=== PATIENT | female | born 1975 | race Caucasian/White ===

== ENCOUNTER 2017-03-19 09:42 | Day surgery (SDC) | payer BC ==
--- NOTE | 2017-03-19 08:51 | PCM.PREANE ---
Preanesthetic Assessment - Anesthesia/Transfusion/Family Hx Anesthesia History: Prior Anesthesia Reaction Type of Anesthesia Reaction: Excessive Nausea/Vomiting Family History of Anesthesia Reaction: No Transfusion History: No Prior Transfusion(s) Intubation History: Unknown - Review of Systems General: Weakness, Fatigue Pulmonary: No Symptoms (Smoker: Quit around 2014) Cardiovascular: No Symptoms (History of HTN, currently on beta mayito and lasix. History of PVC's), Palpitations Gastrointestinal: Abdominal pain, Constipation, Decreased appetite Neurological: Headache (history of migraines), Paresthesia (only in feet if standing for long periods of time.) Other: Reports: Sinus Problem (infected left upper tooth with swelling and pain noted. Patient has been treated with antibiotics and pain meds.) - Physical Assessment NPO Status Date: 03/19/17 NPO Status Time: 02:00 Pulse: 82 O2 Sat by Pulse Oximetry: 98 Respiratory Rate: 16 Blood Pressure: 151/96 Temperature: 36.5 C Height: 1.69 m Weight: 86.183 kg ASA Class: 2 Mental Status: Alert & Oriented x3 Airway Class: Mallampati = 2 Dentition: Reports: Normal Dentition, Missing Tooth/Teeth (left upper, infected tooth noted with patient on antibiotics/and pain meds.), Caries Thyro-Mental Finger Breadths: 3 Mouth Opening Finger Breadths: 3 ROM/Head Extension: Full Lungs: Clear to auscultation, Normal respiratory effort Cardiovascular: Regular Rate, Regular Rhythm - Lab Values: HGB: 16.0 HCT: 46.5 Platelets: 320,000 Electrolytes reviewed, noted and within normal limits. - Imaging/EKG Impressions: EKG: Sinus rhythm rate=76, prolonged pr interval - Allergies Allergies/Adverse Reactions: Allergies Allergy/AdvReac Type Severity Reaction Status Date / Time lisinopril Allergy Rash Verified 03/18/17 15:01 morphine Allergy Rash Verified 03/18/17 15:01 oxybutynin Allergy Dizziness Verified 03/18/17 15:01 - Anesthesia Plan Pre-Op Medication Ordered: Beta Mayito Beta Mayito: Metoprolol Med Last Dose Date: 03/19/17 Med Last Dose Time: 08:30 - Acknowledgements Anesthesia Type Planned: General Anesthesia Pt an Appropriate Candidate for the Planned Anesthesia: Yes Alternatives and Risks of Anesthesia Discussed w Pt/Guardian: Yes Pt/Guardian Understands and Agrees with Anesthesia Plan: Yes PreAnesthesia Questionnaire HEENT History: Reports: Impaired vision Other HEENT History: wears glasses Cardiovascular History: Reports: Hypertension Other Cardiovascular History: frequent PVCs Respiratory History: Reports: None Gastrointestinal History: Reports: Chronic constipation, Irritable bowel syndrome Other Genitourinary History: weak bladder, urgency, frequency, overactive bladder 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 Requests leg elevation. Neurological History: Reports: Migraines, Vertigo Psychiatric History: Reports: None Endocrine/Metabolic History: Reports: None Hematologic History: Reports: None Immunologic History: Reports: None Oncologic (Cancer) History: Reports: None Dermatologic History: Reports: None - Past Surgical History Head Surgeries/Procedures: Reports: None HEENT Surgical History: Reports: Tonsillectomy, Other (see below) Other HEENT Surgeries/Procedures: oral abcess GI Surgical History: Reports: Appendectomy, Cholecystectomy Female Surgical History: Reports: section, Hysterectomy Other Female Surgeries/Procedures: uterine ablation, essure implants, ovarian cyst R, adnexal tenderness/mass - SUBSTANCE USE Smoking Status *Q: Never Smoker Second Hand Smoke Exposure: No Days Per Week of Alcohol Use: 0 Number of Drinks Per Day: 0 Total Drinks Per Week: 0 Recreational Drug Use History: No - HOME MEDS Home Medications: Home Meds Furosemide [Lasix] 40 mg PO BID 10/21/15 [History] Metoprolol Tartrate 50 mg PO BID 10/21/15 [History] Potassium Chloride [Klor-Con] 20 meq PO BID 10/21/15 [History] Acetaminophen/HYDROcodone [[place] 325-5 MG] 0.5 - 1 tab PO Q6H #20 tablet [Rx] - CURRENT (IN HOUSE) MEDS Current Meds: Current Medications Lactated Ringer's (Ringers, Lactated) 1,000 mls @ 125 mls/hr IV ASDIRECTED JEOVANNY Stop: 03/19/17 23:00 Lidocaine/Sodium Bicarbonate (Buffered Lidocaine 1% In Ns 8.4%) 0.25 ml IV ONETIME PRN PRN Reason: Prior to IV Start Stop: 03/19/17 18:00 Sodium Chloride (Saline Flush) 10 ml FLUSH ASDIRECTED PRN PRN Reason: Keep Vein Open Stop: 03/19/17 18:00
[~2017-03-19 09:42] MED LIST: Dexamethasone 4 MG/ML 5 ML MDV ONE; HYDROmorphone 1 MG/ML Syringe ONE; Ketorolac 30 MG/ML SDV ONE; Lactated Ringers 1,000 ML IV SCH; Lactated Ringers 1,000 ML ONE; Lidocaine 1% 6 ML ONE; Lidocaine 1%/Sod Bicarbonate in NS 8.4% 1 ML Syringe IV PRN; Midazolam 1 MG/ML 2 ML SDV ONE; Ondansetron 4 MG/2 ML SDV ONE; Propofol 200 MG/20 ML SDV ONE; Rocuronium 50 MG/5 ML Vial ONE; Sodium Chloride 0.9% 10 ML Syringe FLUSH PRN; ceFAZolin 1 GM Vial ONE; diphenhydrAMINE 50 MG/ML SDV ONE; fentaNYL 250 MCG/5 ML SDV ONE
[2017-03-19] MEDS ORDERED: Bupivacaine 0.5% 30 ML SDV ONE (09:53)
[2017-03-19] MEDS ORDERED: Scopolamine 1.5 MG Transdermal Patch TRDERM ONE (10:00)
[2017-03-19] MEDS ORDERED: Ondansetron 4 MG/2 ML SDV IVPUSH PRN (10:52)
[2017-03-19] MEDS ORDERED: Neostigmine Methylsulfate 1 MG/ML 5 ML Syringe ONE (11:08)
--- NOTE | 2017-03-19 11:42 | PCM.OPNOTE ---
- General Post-Op/Procedure Note Date of Surgery/Procedure: 03/19/17 Operative Procedure(s): Laparoscopy lysis of adhesions, and removal of left [place], [id number] Pre Op Diagnosis: Pelvic pain Post-Op Diagnosis: Same plus left ovarian cyst. Multiple, and adhesions of the colon to the pelvic sidewall, and omentum Anesthesia Technique: General ET tube Primary Surgeon: Neftali Burroughs Secondary Surgeon: Justin Buenrostro Anesthesia Provider: Nathaly Renee Fluid Replacement, Intraop: 1,000 Output, Urine Amount: 25 EBL in mLs: 10 Drain/Tube Comments:: None Complications: None Condition: Good Free Text/Narrative:: Patient was transported to operating room #[address] in the supine position. Under general anesthesia with endotracheal intubation. SCDs in place and functioning. Prior surgery. Ancef 2 g given intravenously, prior surgery. Timeout performed confirming name, date of , and procedure as, laparoscopy , possible removal of left ovary, lysis of adhesions if present, possible laparotomy with removal left ovary, and lysis of the indicated and sees. Patient had laparoscopy, with left ovary removed, and lysis of adhesions.). Examination under anesthesia. While placing. Tellez catheter revealed left adnexal cystic area after placement of Tellez abdominal prep performed and draped in sterile fashion. 2 mL of RK, and without epinephrine injected into the umbilical area and suprapubic area and subsequent right and left quadrants for placement of trochars. Needle, was placed. Pneumoperitoneum was obtained, and 5 mm port placed at the umbilicus suprapubically, and after evaluation. A pelvic organs. Left flank and right flank, as well. Transilluminating abdomen to avoid vascular injury are possible. The scope revealed normal cul-de-sac. Right side, where ovary had been removed was normal. The left side, showed a cystic, filmy adhesive area to the left of the colon, which was lysed with blunt , and sharp dissection, and the left ovary was in this cystic area. Left ovary was grasped, and utilizing, and sealed. Crossclamping, activating, incising, and removing the left ovary, and lysis of at the adhesions surrounding the ovary. The left ovary was removed. The cecum was normal. Patient has previously had appendectomy. The patient has had previous, cholecystectomy as well. The liver area appeared normal. The area of removal of the ovary and lysis of lesions was draped with Interceed sheets 3, by 4 inches, and sponge, pack, and sharp count correct, x2. The pneumoperitoneum was reduced after removing the 12 mm port on the right side. No bleeding. This was suture- ligated the anterior fascia. Utilizing 0 Vicryl, and reinspection showed no adherent bowel or through and through suture into the abdominal cavity. The skin where the ports had been placed suture ligated with subcuticular suture of 3-0 Monocryl, Dermabond applied. One set of pictures taken with 11 image is image 001, shows the cul-de-sac, free of adhesions, and endometriosis image, 002, shows the cul-de-sac. Again, free of endometriosis image, 003, shows the adhesive, cystic area on the left side, which covered the ovary and surrounding tissue. Image, 004, shows the left ovary on traction with adhesions of the left ovary to the pelvic sidewall image 005 shows the left ovary. After removal and image 006, again, shows the left ovary. After removal image, 007, shows the area where Interceed was placed image 008, shows the right 12 mm trocar area with no bleeding. Image 009 , shows the cecum, an area, where the appendix would have been image 010, shows the liver area. Images, 011, shows the right adnexal area with no adhesions or scar tissue. Patient transported post anesthesia care unit in satisfactory condition. No blood transfusions were required. Talked with the . All questions answered is voice satisfaction. Patient has followup in the clinic in 4 weeks. Percocet 5/325, dispense 20 561 by mouth every 6-8 hours when necessary pain alternating with Motrin 600 mg by mouth Q 6 hours when necessary pain, dispense 50, also a prescription for Zofran for nausea 4 mg by mouth sublingual every 6- 8 hours as needed. Dispense 20, and removed scopolamine patch in 24-48 hours, watching, and well. After removal of patch
--- NOTE | 2017-03-19 11:46 | PCM.POSTAN ---
POST ANESTHESIA ASSESSMENT - MENTAL STATUS Mental Status: alert - VITAL SIGNS Pulse Rate: 77 SaO2: 98 Resp Rate: 9 Blood Pressure: 137/87 Temperature: 36.3 C - RESPIRATORY Respiratory Status: respiratory rate WNL, airway patent, O2 saturation stable, supplemental oxygen - CARDIOVASCULAR CV Status: pulse rate WNL, blood pressure stable - GASTROINTESTINAL GI Status: no symptoms - POST OP HYDRATION Hydration Status: adequate & stable
[2017-03-19] MEDS ORDERED: fentaNYL 100 MCG/2 ML SDV IVPUSH PRN (11:50)
[2017-03-19] MEDS ORDERED: Meperidine PF 50 MG/ML Syringe IVPUSH PRN (11:50)
[2017-03-19] MEDS: HYDROmorphone 0.5 MG/0.5 ML Syringe IVPUSH PRN ×2 (12:02→12:37)
--- NOTE | 2017-03-19 12:24 | PCM48HPAN ---
Post Anesthesia Note - EVALUATION WITHIN 48HRS OF ANESTHETIC Vital Signs in Normal Range: Yes Patient Participated in Evaluation: Yes Respiratory Function Stable: Yes Airway Patent: Yes Cardiovascular Function Stable: Yes Hydration Status Stable: Yes Pain Control Satisfactory: Yes Nausea and Vomiting Control Satisfactory: Yes Mental Status Recovered: Yes
[2017-03-19] MEDS ORDERED: Acetaminophen/oxyCODONE 325-5 MG Tab PO PRN (13:27)
[2017-03-19 14:32] VITALS: BP 133/80
== END 2017-03-19 15:10 | disposition home or self-care (01) ==
LOC: JD.SDS 09:42
PROVIDERS: ATTEND Obstetrics & Gynecology
PROC: 0UT14ZZ Resection of Left Ovary, Percutaneous Endoscopic Approach (ICD-10-PCS; principal; 2017-03-19)
DX: N83.12 Corpus luteum cyst of left ovary (principal); N83.02 Follicular cyst of left ovary; I10 Essential (primary) hypertension; N32.81 Overactive bladder; Z79.899 Other long term (current) drug therapy; Z88.6 Allergy status to analgesic agent; Z88.8 Allergy status to other drugs, medicaments and biological substances; Z87.891 Personal history of nicotine dependence
CPT/HCPCS: 58661; 88305; 93005; A9270; C1765; J0690; J1100; J1170; J1200; J1885; J2250; J2405; J2710; J3010; J7120; 00840; J2704

== ENCOUNTER 2019-11-07 14:39 | Emergency (ER) | payer BC ==
[2019-11-07] MEDS ORDERED: Sodium Chloride 0.9% 10 ML Syringe FLUSH PRN (15:50)
[2019-11-07] MEDS ORDERED: hydrALAZINE 10 MG Tab PO ONE (15:52)
--- NOTE | 2019-11-07 16:22 | CT ---
Head CT Technique: Multiple axial sections through the brain were obtained. Intravenous contrast was not utilized. Comparison: No prior intracranial imaging is available. Limitations: Inferior aspect of the cerebellar tonsils not included on the exam. Findings: Ventricles along with basal cisterns and sulci over the convexities are within normal limits for the patient's age. No abnormal parenchymal densities are seen. No evidence of intracranial hemorrhage. No midline shift or mass effect is seen. Mild mucosal thickening seen within the left maxillary sinus. Other visualized paranasal sinuses are clear. No acute calvarial abnormality is seen. Impression: 1. Mucosal thickening within the left maxillary sinus having the appearance of chronic sinusitis. 2. No acute intracranial abnormality is seen. Note: Inferior cerebellar tonsils not included on the exam. If patient's symptoms warrant further evaluation, MRI could be obtained which could also evaluate the cerebellar tonsils. Diagnostic code #3 This report was dictated in [place] Standard Time
--- NOTE | 2019-11-07 17:51 | EDM.PDOC ---
ED HPI GENERAL MEDICAL PROBLEM - General Chief Complaint: Cardiovascular Problem Stated Complaint: HIGH BLOOD PRESSURE Time Seen by Provider: 11/07/19 15:25 Source of Information: Reports: Patient History Limitations: Reports: No Limitations - History of Present Illness INITIAL COMMENTS - FREE TEXT/NARRATIVE: The patient presents with elevated blood pressure. She had hypertension since she was 10. She is on metoprolol and lasix. There has not been any changes to her medications lately. She has been under lots of stress lately. She is helping take care of her mom and dad and they both need to go into the prison but they will not. She has been having some headaches at time. She has no chest pain but fluttering at times. She has no fever, chills, cough, abdominal pain, nausea or vomiting. She has no numbness or weakness. Onset: Gradual Duration: Week(s): Location: Reports: Head Quality: Reports: Ache Severity: Mild Improves with: Reports: None Worsens with: Reports: None Associated Symptoms: Reports: Headaches. Denies: Chest Pain, Cough, Fever/ Chills, Nausea/Vomiting, Shortness of Breath - Related Data Allergies Allergy/AdvReac Type Severity Reaction Status Date / Time lisinopril Allergy Tachycardia Verified 11/07/19 15:23 morphine Allergy Confusion Verified 11/07/19 15:23 oxybutynin Allergy Dizziness Verified 11/07/19 15:23 Home Meds: Home Meds Furosemide [Lasix] 40 mg PO BID 10/21/15 [History] Metoprolol Tartrate 50 mg PO BID 10/21/15 [History] Potassium Chloride [Klor-Con] 20 meq PO BID 10/21/15 [History] Ibuprofen [Motrin] 600 mg PO Q6H #50 tablet 03/19/17 [Rx] Butalb/Acetaminophen/Caffeine [Ykxubh-Hniuiwmr-Mprz 50-325-40] 1 mg PO Q4HR PRN 11/07/19 [History] Metoprolol Tartrate 100 mg PO DAILY #60 tablet 11/07/19 [Rx] Past Medical History HEENT History: Reports: Impaired Vision Other HEENT History: wears glasses Cardiovascular History: Reports: Hypertension Other Cardiovascular History: frequent PVCs Respiratory History: Reports: None Gastrointestinal History: Reports: Other (See Below) Other Gastrointestinal History: Adhesions aroun her colon Other Genitourinary History: weak bladder, urgency, frequency 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 Requests leg elevation. Neurological History: Reports: Migraines Psychiatric History: Reports: None Endocrine/Metabolic History: Reports: None Hematologic History: Reports: None Immunologic History: Reports: None Oncologic (Cancer) History: Reports: None Dermatologic History: Reports: None - Past Surgical History Head Surgeries/Procedures: Reports: None HEENT Surgical History: Reports: Tonsillectomy GI Surgical History: Reports: Cholecystectomy, Colonoscopy Female Surgical History: Reports: Section, Hysterectomy Social & Family History - Tobacco Use Smoking Status *Q: Never Smoker Second Hand Smoke Exposure: Yes - Caffeine Use Caffeine Use: Reports: Coffee Caffeine Use Comment: a couple a day - Recreational Drug Use Recreational Drug Use: No ED ROS GENERAL - Review of Systems Review Of Systems: See Below Constitutional: Reports: No Symptoms HEENT: Reports: No Symptoms Respiratory: Reports: No Symptoms Cardiovascular: Reports: No Symptoms Endocrine: Reports: No Symptoms GI/Abdominal: Reports: No Symptoms : Reports: No Symptoms Musculoskeletal: Reports: No Symptoms Neurological: Reports: Headache ED EXAM, GENERAL - Physical Exam Exam: See Below Exam Limited By: No Limitations General Appearance: Alert, No Apparent Distress Ears: Normal External Exam Nose: Normal Inspection Head: Atraumatic, Normocephalic Neck: Normal Inspection, Supple, Non-Tender Respiratory/Chest: No Respiratory Distress, Lungs Clear, Normal Breath Sounds Cardiovascular: Regular Rate, Rhythm, No Edema, No Murmur GI/Abdominal: Soft, Non-Tender, No Organomegaly, No Mass Back Exam: Normal Inspection Extremities: Normal Inspection Neurological: Alert, Oriented, No Motor/Sensory Deficits EKG INTERPRETATION EKG Date: 11/07/19 Time: 16:21 Rhythm: NSR Rate (Beats/Min): 85 [place]: Normal P-Wave: Present QRS: Normal ST-T: Normal QT: Normal Course - Vital Signs Last Recorded V/S: Last Vital Signs Temp 98.7 F 11/07/19 15:28 Pulse 91 11/07/19 15:28 Resp 16 11/07/19 15:28 BP 179/105 H 11/07/19 16:51 Pulse Ox 100 11/07/19 15:28 - Orders/Labs/Meds Orders: Active Orders 24 hr Category Date Time Status Cardiac Monitoring [RC] . DIRECTED Care 11/07/19 15:50 Active EKG Documentation Completion [RC] STAT Care 11/07/19 15:51 Active Peripheral IV Care [RC] . DIRECTED Care 11/07/19 15:51 Active Sodium Chloride 0.9% [Saline Flush] Med 11/07/19 15:50 Active 10 ml FLUSH ASDIRECTED PRN Peripheral IV Insertion Adult [OM.PC] Stat Oth 11/07/19 15:50 Ordered Medication Orders Sodium Chloride (Saline Flush) 10 ml FLUSH ASDIRECTED PRN PRN Reason: Keep Vein Open Last Admin: 11/07/19 16:52 Dose: 10 ml Labs: Laboratory Tests 11/07/19 11/07/19 Range/Units 16:41 16:41 WBC 8.40 (3.98-10.04) K/mm3 RBC 5.14 (3.98-5.22) M/mm3 Hgb 15.7 (11.2-15.7) gm/dl Hct 45.1 H (34.1-44.9) % MCV 87.7 (79.4-94.8) fl MCH 30.5 (25.6-32.2) pg MCHC 34.8 (32.2-35.5) g/dl RDW Std Deviation 40.0 (36.4-46.3) fL Plt Count 284 (182-369) K/mm3 MPV 10.2 (9.4-12.3) fl Neut % (Auto) 57.7 (34.0-71.1) % Lymph % (Auto) 29.3 (19.3-51.7) % [place] % (Auto) 10.2 (4.7-12.5) % Eos % (Auto) 1.4 (0.7-5.8) Baso % (Auto) 1.0 (0.1-1.2) % Neut # (Auto) 4.85 (1.56-6.13) K/mm3 Lymph # (Auto) 2.46 (1.18-3.74) K/mm3 [place] # (Auto) 0.86 H (0.24-0.36) K/mm3 Eos # (Auto) 0.12 (0.04-0.36) K/mm3 Baso # (Auto) 0.08 (0.01-0.08) K/mm3 Sodium 140 (136-145) mEq/L Potassium 3.4 L (3.5-5.1) mEq/L Chloride 103 (98-107) mEq/L Carbon Dioxide 32 (21-32) mEq/L Anion Gap 8.4 (5-15) BUN 9 (7-18) mg/dL Creatinine 0.7 (0.55-1.02) mg/dL Est Cr Clr Drug Dosing TNP Estimated GFR (MDRD) > 60 (>60) mL/min BUN/Creatinine Ratio 12.9 L (14-18) Glucose 150 H (74-106) mg/dL Calcium 8.6 (8.5-10.1) mg/dL Total Bilirubin 0.3 (0.2-1.0) mg/dL AST 37 (15-37) U/L ALT 69 H (14-59) U/L Alkaline Phosphatase 113 (46-116) U/L Troponin I < 0.017 (0.00-0.056) ng/mL Total Protein 7.1 (6.4-8.2) g/dl Albumin 3.8 (3.4-5.0) g/dl Globulin 3.3 gm/dL Albumin/Globulin Ratio 1.2 (1-2) Meds: Medications Generic Name Dose Route Start Last Admin Trade Name Freq PRN Reason Stop Dose Admin Sodium Chloride 10 ml 11/07/19 15:50 11/07/19 16:52 Saline Flush FLUSH 10 ml ASDIRECTED PRN Administration Keep Vein Open Discontinued Medications Generic Name Dose Route Start Last Admin Trade Name Freq PRN Reason Stop Dose Admin Hydralazine HCl 10 mg 11/07/19 15:52 11/07/19 16:51 Apresoline PO 11/07/19 15:53 10 mg ONETIME ONE Administration - Re-Assessments/Exams Free Text/Narrative Re-Assessment/Exam: 11/07/19 17:52 I ordered an IV saline lock, EKG, CT of head, labs and hydralazine 10mg PO. Her EKG shows a NSR with no acute changes. The CT of her head shows nothing acute. Her CBC looks good. Her K was a little low at 3.4. Her glucose is 150. Her ALT is elevated at 69. Her troponin is negative. I will increase her metoprolol to 100mg 2 times per day. She is seeing cardiology next week. Departure - Departure Time of Disposition: 17:55 Disposition: Home, Self-Care 01 Condition: Good Clinical Impression: Hypertension Qualifiers: Hypertension type: essential hypertension Qualified Code(s): I10 - Essential ( primary) hypertension Prescriptions: Metoprolol Tartrate 100 mg PO DAILY #60 tablet Referrals: Pooja Ham NP [Primary Care Provider] - 1 Week Additional Instructions: Take 100mg by mouth 2 times per day. Check your blood pressure periodically this week. 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 Please return if you are worse. Sepsis Event Note - Evaluation Sepsis Screening Result: No Definite Risk - Focused Exam Vital Signs: Vital Signs Temp Pulse Resp BP BP Pulse Ox 11/07/19 16:51 179/105 H 11/07/19 15:28 98.7 F 91 16 191/102 H 100 Date Exam was Performed: 11/07/19 Time Exam was Performed: 17:46 - My Orders Last 24 Hours: My Active Orders 11/07/19 15:50 Cardiac Monitoring [RC] . DIRECTED Sodium Chloride 0.9% [Saline Flush] 10 ml FLUSH ASDIRECTED PRN Peripheral IV Insertion Adult [OM.PC] Stat 11/07/19 15:51 EKG Documentation Completion [RC] STAT Peripheral IV Care [RC] . DIRECTED - Assessment/Plan Last 24 Hours: My Active Orders 11/07/19 15:50 Cardiac Monitoring [RC] . DIRECTED Sodium Chloride 0.9% [Saline Flush] 10 ml FLUSH ASDIRECTED PRN Peripheral IV Insertion Adult [OM.PC] Stat 11/07/19 15:51 EKG Documentation Completion [RC] STAT Peripheral IV Care [RC] . DIRECTED
[2019-11-07 18:43] VITALS: BP 184/111; PULSE 86
== END 2019-11-07 18:40 | disposition home or self-care (01) ==
LOC: JD.ED 14:39
DX: I10 Essential (primary) hypertension (principal); Z79.899 Other long term (current) drug therapy; Z77.22 Contact with and (suspected) exposure to environmental tobacco smoke (acute) (chronic); Z88.5 Allergy status to narcotic agent; Z88.8 Allergy status to other drugs, medicaments and biological substances
CPT/HCPCS: 36415; 70450; 80053; 84484; 85025; 93005; 99283; A9270; 93010